=== PATIENT | female | born 1945 | race Caucasian/White ===

== ENCOUNTER 2018-06-22 08:11 | Day surgery (SDC) | payer MEDICARE, SELFPAY ==
[2018-06-22 09:12] VITALS: BP 129/72; PULSE 64; RESP 16; TEMP 36.6; O2SAT 100; BMI 24.0
[2018-06-22] MEDS: PROPARACAINE 0.5% OPHTH SOL 2 DROPS EYE-OP (09:19)
[2018-06-22] MEDS: CATARACT EYE COMPOUND (10 DROPS/SYRINGE) 3 DROPS EYE-OP (09:22)
--- NOTE | 2018-06-22 10:03 | PM.PREOP ---
Pre-operative Note Interval Note History & Physical reviewed/Exam performed by Physician: No Changes to H&P: No
--- NOTE | 2018-06-22 10:03 | PM.OP.1 ---
Operative Date/Time/Diagnoses Pre-op diagnosis: Nuclear Cataract Left eye Post-op diagnosis: same Procedure & Clinicians Surgeon: Johnny Waldrop Anesthesia Type: MAC +/- and Sedation Operative Notes Procedure in detail: Patient brought to the operating suite. Tetracaine drops placed in the left eye. Patient was prepped and draped in sterile manner. Wire lid speculum was placed in the eye. Betadine drops were placed on the eye. This was irrigated. Lidocaine jelly was placed on the eye. A paracentesis port was created with a side-port blade. 0.1 mL 1% preservative free lidocaine was injected into the anterior chamber. The anterior chamber was deepened with viscoelastic. 2.6 mm keratome was used to create a temporal clear corneal incision. Cystotome and Utrata forceps were used to create continuous tear capsulorrhexis. Balanced salt solution was used to hydro dissect the nucleus. The phacoemulsification handpiece was inserted and the nucleus was removed using the stop and chop technique. The irrigation aspiration handpiece was inserted and the remaining cortex was removed. Anterior chamber was deepened with viscoelastic. An Britt ZCB00 intraocular lens with a power of 22.0 was injected into the capsular bag. Irrigation aspiration handpiece was inserted and the remaining viscoelastic was removed. Incision was hydrated with balanced salt solution and found to be leak free with pressure with Weck-Cyn sponges. 0.1 mL Vigamox injected anterior chamber. 0.3 mL Kenalog 10 mg was injected subconjunctivally. Lid speculum was removed. The patient left the operating room in excellent condition. Complications: none Condition: stable Disposition: same day surgery
--- NOTE | 2018-06-22 10:18 | SUR.OPER ---
Supine on eye stretcher, head on extension cradle secured with tape. Arms tucked at sides with blanket. Pillow under knees.
[2018-06-22] MEDS: LIDOCAINE JELLY 2% 5 ML 1 APPLIC TOP (10:20)
[2018-06-22] MEDS: CHONDROIDTIN/SOD HYALURONATE 1.05 ML SYRINGE INTRAOCULA (10:20)
[2018-06-22] MEDS: TRIAMCINOLONE 50 MG/5 ML VIAL INJ (10:21)
[2018-06-22] MEDS: TETRACAINE 0.5% OPHTH DROPS 4 ML 2 DROPS EYE-OP (10:21)
[2018-06-22] MEDS: MOXIFLOXACIN OPHTH DROPS 3 ML BOTTLE 2 DROPS INJ (10:21)
[2018-06-22] MEDS: PHENYLEPHRINE/LIDOCAINE VIAL (OR) 0.2 ML EYE-OP (10:21)
[2018-06-22] MEDS: BALANCED SALT IRRIG SOLN NO.2 500 ML, EPINEPHrine 1 MG IRR (10:22)
[2018-06-22 10:29] VITALS: BP 122/77; PULSE 60; RESP 14; TEMP 36.7; O2SAT 99
== END 2018-06-22 10:52 | disposition home or self-care (01) ==
LOC: OR 08:14
PROVIDERS: PCP Family Medicine Geriatric Medicine; Visit Provider Ophthalmology
DX: H25.12 Age-related nuclear cataract, left eye (principal)
CPT/HCPCS: J0171; J2250; J3010; J3301

== ENCOUNTER → 2018-06-29 19:16 | Outpatient (REF) | payer MEDICARE, SELFPAY ==
[2018-06-29 20:12] LABS: Alanine Aminotransferase 29 IU/L (9-52); Albumin 4.5 g/dL (3.5-5.0); Albumin Globulin Ratio 1.6 (1.0-2.8); Alkaline Phosphatase 57 U/L (38-126); Aspartate Aminotransferase 25 IU/L (14-36); BUN Creatinine Ratio 22.5 (6-22); Bilirubin Total 1.1 mg/dL (0.2-1.3); Blood Urea Nitrogen 18 mg/dL (7-17); Carbon Dioxide 29 mmol/L (22-32); Chloride 102 mmol/L (98-107); Cholesterol 227 mg/dL (140-199); Estimated Glomerular Filt Rate > 60.0 mL/min (>60); Globulin 2.8 g/dL (1.7-4.1); Glucose 89 mg/dL (80-110); HDL Cholesterol 75 mg/dL (40-60); HEMOLYSIS < 15 (0-50); LDL Cholesterol Calculated 134 mg/dL (<100); Potassium 4.1 mmol/L (3.4-5.1); Sodium 139 mmol/L (137-145); Total Protein 7.3 g/dL (6.3-8.2); Triglycerides 92 mg/dL (35-150)
== END ==
LOC: LAB 19:16
PROVIDERS: PCP Family Medicine Geriatric Medicine; Visit Provider Physician Assistant
DX: E78.5 Hyperlipidemia, unspecified (principal)
CPT/HCPCS: 36415; 80053; 80061

== ENCOUNTER 2018-07-06 08:13 | Day surgery (SDC) | payer MEDICARE, SELFPAY ==
[2018-07-06] MEDS: PROPARACAINE 0.5% OPHTH SOL 2 DROPS EYE-OP (09:20)
[2018-07-06 09:22] VITALS: BP 122/92; PULSE 66; RESP 16; TEMP 36.4; O2SAT 99; BMI 25.7
[2018-07-06] MEDS: CATARACT EYE COMPOUND (10 DROPS/SYRINGE) 3 DROPS EYE-OP (09:29)
--- NOTE | 2018-07-06 10:43 | PM.PREOP ---
Pre-operative Note Interval Note History & Physical reviewed/Exam performed by Physician: No Changes to H&P: No
--- NOTE | 2018-07-06 10:43 | PM.OP.1 ---
Operative Date/Time/Diagnoses Pre-op diagnosis: Nuclear cataract right eye Procedure & Clinicians Procedure: Cataract Surgery Same procedure as scheduled: Yes Surgeon: Johnny Waldrop Anesthesia Type: MAC +/- and Sedation Operative Notes Procedure in detail: Patient brought to the operating suite. Tetracaine drops placed in the right eye. Patient was prepped and draped in sterile manner. Wire lid speculum was placed in the eye. Betadine drops were placed on the eye. This was irrigated. Lidocaine jelly was placed on the eye. A paracentesis port was created with a side-port blade. 0.1 mL 1% preservative free lidocaine was injected into the anterior chamber. The anterior chamber was deepened with viscoelastic. 2.6 mm keratome was used to create a temporal clear corneal incision. Cystotome and Utrata forceps were used to create continuous tear capsulorrhexis. Balanced salt solution was used to hydro dissect the nucleus. The phacoemulsification handpiece was inserted and the nucleus was removed using the stop and chop technique. The irrigation aspiration handpiece was inserted and the remaining cortex was removed. Anterior chamber was deepened with viscoelastic. An Britt ZCB00 intraocular lens with a power of 21.5 was injected into the capsular bag. Irrigation aspiration handpiece was inserted and the remaining viscoelastic was removed. Incision was hydrated with balanced salt solution and found to be leak free with pressure with Weck-Cyn sponges. 0.1 mL Vigamox injected anterior chamber. 0.3 mL Kenalog 10 mg was injected subconjunctivally. Lid speculum was removed. The patient left the operating room in excellent condition. Complications: none Condition: stable Disposition: same day surgery
[2018-07-06] MEDS: MOXIFLOXACIN OPHTH DROPS 3 ML BOTTLE 2 DROPS INJ (10:59)
[2018-07-06] MEDS: TRIAMCINOLONE 50 MG/5 ML VIAL INJ (10:59)
[2018-07-06] MEDS: PHENYLEPHRINE/LIDOCAINE VIAL (OR) 0.2 ML EYE-OP (10:59)
[2018-07-06] MEDS: TETRACAINE 0.5% OPHTH DROPS 4 ML 2 DROPS EYE-OP (11:00)
[2018-07-06] MEDS: LIDOCAINE JELLY 2% 5 ML 1 APPLIC TOP (11:00)
[2018-07-06] MEDS: CHONDROIDTIN/SOD HYALURONATE 1.05 ML SYRINGE INTRAOCULA (11:00)
[2018-07-06] MEDS: BALANCED SALT IRRIG SOLN NO.2 500 ML, EPINEPHrine 1 MG IRR (11:01)
[2018-07-06 11:10] VITALS: BP 113/73; PULSE 61; RESP 16; TEMP 36.6; O2SAT 100
== END 2018-07-06 11:31 | disposition home or self-care (01) ==
LOC: OR 08:14
PROVIDERS: PCP Family Medicine Geriatric Medicine; Visit Provider Ophthalmology
DX: H25.11 Age-related nuclear cataract, right eye (principal)
CPT/HCPCS: J0171; J2250; J3010; J3301

== ENCOUNTER → 2018-10-23 12:16 | Outpatient (CLI) | payer MEDICARE, SELFPAY ==
--- NOTE | 2018-10-23 | DI.MRI.S_ITS ---
PROCEDURE: MR CERVICAL SPINE WO CON INDICATIONS: Left Hip Pain Cervical Radicul TECHNIQUE: Noncontrast sagittal T1 spin echo and T2 fast spin echo, sagittal STIR, foraminal oblique sagittal T2 fast spin echo, and axial gradient echo or T2 fast spin echo through the cervical spine. COMPARISON: None. FINDINGS: Image quality: Excellent. Alignment and Curvature: There is normal bony alignment. Bone Marrow: Marrow demonstrates normal overall signal. Spinal Cord: Visualized spinal cord has normal size and signal. No cerebellar tonsillar herniation. Paraspinous Soft Tissues: No paravertebral masses. Prevertebral soft tissues are normal in thickness. C2-C3: Normal appearance. C3-C4: Diffuse disc bulge is seen with mild effacement of thecal sac anteriorly. Mild right-sided neuroforaminal narrowing is seen. C4-C5: Decreased intervertebral disc space is seen. Broad-based disc bulge and bilateral uncinate hypertrophic changes are noted with mild central canal stenosis and mild bilateral neuroforaminal narrowing. C5-C6: Broad-based disc bulge and bilateral uncinate hypertrophic changes are seen with mild central canal stenosis and right worse than left bilateral neuroforaminal narrowing. There is likely compression of exiting bilateral C6 nerve roots. C6-C7: Diffuse disc bulge and bilateral uncinate hypertrophic changes are seen with mild central canal stenosis and mild left-sided neuroforaminal narrowing. C7-T1: Normal appearance. IMPRESSION: 1. Degenerative disc bulge and bilateral facet hypertrophic changes throughout the cervical spine causing mild to moderate central canal stenosis and bilateral neuroforaminal narrowing more prominent at C5-6 level as described above. 2. No marrow edema. No compression fracture or spondylolisthesis. No abnormal cervical spinal cord signal. Dictated by: Martinez Robins M.D. on 10/25/2018 at 8:44 Approved by: Martinez Robins M.D. on 10/25/2018 at 8:53
--- NOTE | 2018-10-23 | DI.MRI.S_ITS ---
PROCEDURE: MR HIP LT WO CON INDICATIONS: Left Hip Pain Cervical Radicul TECHNIQUE: Noncontrast coronal T1 spin echo and STIR through the bony pelvis. Coronal and axial T2 fast spin echo with fat saturation, sagittal T1 spin echo, and oblique axial T2 fast spin echo with fat saturation through the hip. COMPARISON: None. FINDINGS: Image quality: Excellent. Bones and joints: Mild to moderate bilateral hip joint osteoarthritic changes are seen with superior joint space narrowing, and subchondral sclerosis. No marrow edema is seen. No intraosseous lesions or fractures. No avascular necrosis of the femoral heads. The visualized lower lumbar spine appears normally aligned. Tendons and ligaments: There is tendinosis and intrasubstance partial-thickness tear involving left distal gluteus medius and minimus tendons at their insertions on the greater trochanter. No muscle atrophy. The nearby proximal iliotibial band also appears intact. The iliopsoas tendon appears intact, without adjacent bursal fluid collections or evidence for impingement syndrome. The origin of the hamstring tendon is intact at the ischial tuberosity, as well as the associated sacrotuberous ligament. The straight and reflected heads of the rectus femoris muscle origin appear intact, as well as the conjoint tendon. The ligamentum teres appears intact where visualized. Labrum and cartilage: There is suggestion of focal superior anterior left hip labral tear intact in the absence of intra-articular contrast. The alpha angle of the femur is within normal limits at less than 55 degrees. Soft tissues: Visualized muscles demonstrate normal bulk and internal signal. Quadratus femoris muscle demonstrates no internal edema to suggest ischiofemoral impingement. The proximal sciatic neurovascular bundle appears normal adjacent to the hamstring tendons. No free pelvic fluid. Bladder wall thickness is normal. Genitourinary structures and bowel loops appear normal where visualized. IMPRESSION: 1. Findings suggestive of tendinosis and low-grade intrasubstance partial-thickness tear involving distal left gluteus medius and minimus tendons at their insertion on the greater trochanter. No other tendon or muscle signal abnormality. No fluid distention of trochanter bursa. 2. Mild to moderate bilateral hip joint osteophytes. No marrow edema. No fracture or dislocation. 3. There is suggestion of focal superior anterior left hip labral tear. Dictated by: Martinez Robins M.D. on 10/25/2018 at 8:38 Approved by: Martinez Robins M.D. on 10/25/2018 at 8:44
== END ==
PROVIDERS: PCP Family Medicine Geriatric Medicine; Visit Provider Physician Assistant Medical
DX: M25.552 Pain in left hip (principal); M25.752 Osteophyte, left hip; M25.751 Osteophyte, right hip; M50.11 Cervical disc disorder with radiculopathy, high cervical region; M48.02 Spinal stenosis, cervical region
CPT/HCPCS: 72141; 73721

== ENCOUNTER → 2019-01-21 12:14 | Outpatient (CLI) | payer MEDICARE, SELFPAY ==
--- NOTE | 2019-01-21 | DI.MRI.S_ITS ---
PROCEDURE: MR LUMBAR SPINE WO CON INDICATIONS: Intervertebral disc disorders with radiculopathy, TECHNIQUE: Noncontrast sagittal T1 spin echo and T2 fast echo, sagittal STIR, axial T1 and T2 fast spin echo through the lumbar spine. In cases with scoliosis, additional coronal T2 fast spin echo may be performed. COMPARISON: [facility] [place] [facility], CR, XR LUMBAR SPINE 2 OR 3 VIEWS, 01/12/2019, 8:41. FINDINGS: Image quality: Excellent. Alignment and Curvature: There is grade one anterolisthesis of L4 on L5. Bone Marrow: There are degenerative endplate signal changes in L5 and S1. No acute vertebral body compression fractures. Spinal Cord: Conus medullaris terminates at the L1-L2 level. Visualized cord demonstrates normal signal and size. Paraspinous Soft Tissues: No paravertebral masses. L1-L2: Normal appearance. L2-L3: Normal appearance. L3-L4: Normal appearance. L4-L5: Preserved disc height. Mild disc desiccation. There is diffuse posterior disc bulge. Moderate left and mild right facet arthropathy. The central canal is patent. Mild bilateral foraminal stenosis. No definitive nerve root impingement. L5-S1: Mild loss of disc height and disc desiccation. There is diffuse posterior disc bulge and disc osteophyte complex. Mild bilateral facet arthropathy. The central canal is patent. Mild bilateral foraminal stenosis. No definitive nerve root impingement. IMPRESSION: 1. Multilevel degenerative disc disease and facet arthropathy in the lower lumbar spine as described. 2. Mild central canal stenosis at L4-L5. 3. Mild foraminal stenosis at L4-L5 bilaterally and L5-S1 bilaterally. Dictated by: Reynaldo Meier M.D. on 01/21/2019 at 15:29 Approved by: Reynaldo Meier M.D. on 01/21/2019 at 15:35
== END ==
PROVIDERS: PCP Family Medicine Geriatric Medicine; Visit Provider Orthopaedic Surgery
DX: M51.16 Intervertebral disc disorders with radiculopathy, lumbar region (principal); M51.17 Intervertebral disc disorders with radiculopathy, lumbosacral region; M48.061 Spinal stenosis, lumbar region without neurogenic claudication; M48.07 Spinal stenosis, lumbosacral region
CPT/HCPCS: 72148